=== PATIENT | male | born 1985 | race African-American/Black ===

== ENCOUNTER 2016-08-01 00:34 | Emergency (ER) | payer MEDICARE, OTHER ==
[~2016-08-01 00:34] MED LIST: /QUET25TA; AMBI10TA; SERO200T
[2016-08-01] MEDS ORDERED: HYDROmorphone HCL 1 MG/ML SYRINGE (J1170) As Ordered ONE ×6 (01:06→04:31)
[2016-08-01] MEDS ORDERED: ONDANSETRON 4MG/2ML VIAL (J2405) As Ordered ONE (01:06)
[2016-08-01 01:34] LABS: BASO % 0.2 % (0.0-1.0); EOS % 0.2 % (0.0-3.0); LARGE UNSTAINED CELL # 0.1 K/mm3 (0.0-0.4); LYMPH # 1.4 K/mm3 (1.5-4.5); LYMPH % 11.3 % (24.0-44.0); MEAN CORPUSCULAR HEMOGLOBIN 27.9 pg (27.0-33.0); MEAN CORPUSCULAR VOLUME 84.6 fl (80.0-96.0); MONO # 0.4 K/mm3 (0.0-0.8); MONO % 3.5 % (0.0-5.0); NEUTROPHILS % 83.7 % (36.0-66.0); PLATELET COUNT, AUTOMATED 319 k/mm3 (150-450)
[2016-08-01 01:40] LABS: ANION GAP 7 MEQ/L (8-16); BLOOD UREA NITROGEN 15 MG/DL (7-18); CARBON DIOXIDE LEVEL 28 MEQ/L (21-32); CHLORIDE LEVEL 103 MEQ/L (98-107); CREATININE FOR GFR 1.44 MG/DL (0.70-1.30); GLOMERULAR FILTRATION RATE > 60.0 (>60); GLUCOSE, FASTING 116 MG/DL (70-105); SODIUM LEVEL 138 MEQ/L (136-145)
--- NOTE | 2016-08-01 03:10 | REPUSA ---
CLINICAL HISTORY: Neck pain. TECHNIQUE: Multiple axial images were obtained through the cervical spine. Images were also reconstru cted in coronal and sagittal planes. The study was performed without IV contrast. COMMENTS: There is no fracture or spondylolisthesis visualized. The paraspinal soft tissues are unremarkable. T here are no lytic or blastic lesions. Straightening of cervical lordosis is seen, suggesting muscular spasm. There is evidence of minimal m ultilevel disk disease, demonstrated by minimal osteophytosis and endplate sclerosis. No significant disk herniation is noted at any level. Canal and foramina remain patent. IMPRESSION: 1. No fracture or spondylolisthesis. 2. Straightening of cervical lordosis is seen, suggesting muscular spasm. 3. Minimal multilevel spondylosis. Thank you for your kind referral of this patient.
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
[2016-08-01] MEDS ORDERED: cefTRIAXone SOD 1 GM VIAL (J0696) As Ordered ONE (03:42)
[2016-08-01] MEDS ORDERED: POLYSPORIN TOPICAL OINTMENT 15GM As Ordered ONE ×2 (03:42→03:52)
[2016-08-01] MEDS ORDERED: ADACEL/BOOSTRIX VACCINE (DIPHTH/PERTUSS/ACELL/TETANUS)0.5ML SYR (90715) As Ordered ONE (03:42)
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
--- NOTE | 2016-08-01 20:47 | ECGEPIP ---
Stationary ECG Study [facility] - ED Test Date: 2016-08-01 Pat Name: VIRGIL CHANCE Department: Room: - Gender: M De Icer Element Winder: ankur : 1985 Requested By: NAHOMY Bingham Order Number: [id number] Reading MD: Yazmin Sher Measurements Intervals [place] Rate: 114 P: 71 KS: 129 QRS: 33 QRSD: 85 T: 4 QT: 312 QTc: 431 Interpretive Statements SINUS TACHYCARDIA NONSPECIFIC T-WAVE ABNORMALITY ABNORMAL RHYTHM ECG INCREASED RATE 07/21/11 Electronically Signed On 08-01-2016 20:47:31 EST by Yazmin Sher
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
== END 2016-08-01 04:36 | disposition short-term general hospital (02) ==
LOC: M ED 00:34
DX: T22.331A Burn of third degree of right upper arm, initial encounter (principal); T22.231A Burn of second degree of right upper arm, initial encounter; X16.XXXA Contact with hot heating appliances, radiators and pipes, initial encounter; Y92.019 Unspecified place in single-family (private) house as the place of occurrence of the external cause; Y93.89 Activity, other specified; Y99.8 Other external cause status; R56.9 Unspecified convulsions; F43.10 Post-traumatic stress disorder, unspecified; F31.9 Bipolar disorder, unspecified; Z87.820 Personal history of traumatic brain injury; F17.210 Nicotine dependence, cigarettes, uncomplicated; Z79.899 Other long term (current) drug therapy
CPT/HCPCS: 36415; 70450; 72125; 80048; 82550; 82553; 84443; 85025; 90715; 93005; 93041; 96372; 96374; 96375; 96376; 99285; J0696; J1170; J2405

== ENCOUNTER 2016-08-13 01:17 | Emergency (ER) | payer MEDICARE, OTHER ==
[2016-08-13] MEDS ORDERED: HYDROmorphone HCL 1 MG/ML SYRINGE (J1170) As Ordered ONE ×2 (02:10→03:09)
[2016-08-13] MEDS ORDERED: LIDOCAINE 4% CREAM 5GM (LMX4) As Ordered ONE (03:20)
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
== END 2016-08-13 05:16 | disposition home or self-care (01) ==
LOC: M ED 01:17
DX: T86.829 Unspecified complication of skin graft (allograft) (autograft) (principal); F41.9 Anxiety disorder, unspecified; F32.9 Major depressive disorder, single episode, unspecified; F43.10 Post-traumatic stress disorder, unspecified; G40.909 Epilepsy, unspecified, not intractable, without status epilepticus; Z87.820 Personal history of traumatic brain injury; Z72.0 Tobacco use; Z79.899 Other long term (current) drug therapy
CPT/HCPCS: 96374; 96376; 99284; J1170